=== PATIENT | female | born 1975 | race Caucasian/White ===

== ENCOUNTER 2019-01-12 06:19 | Day surgery (SDC) | payer MEDICAID ==
[2019-01-12] MEDS: SOD CHLORIDE 0.9% 1,000 ML IV (07:00)
[2019-01-12] MEDS: ACETAMINOPHEN 500 MG TAB PO (07:20)
[2019-01-12] MEDS ORDERED: HEPARIN 1000 UNITS/ML 10 ML INJ (07:40)
[2019-01-12] MEDS ORDERED: MIDAZOLAM 1 MG/ML 2 ML INJ (07:59)
[2019-01-12] MEDS ORDERED: PROPOFOL 40 ML (07:59)
[2019-01-12] MEDS ORDERED: LIDOCAINE 2% (SDV) 5 ML INJ (07:59)
[2019-01-12] MEDS ORDERED: FENTAnyl 50 MCG/ML VIAL (07:59)
[2019-01-12] MEDS ORDERED: CEFAZOLIN 1 GM INJ (07:59)
[2019-01-12] MEDS ORDERED: morphine 2 MG INJ IV ×2 (08:00)
[2019-01-12] MEDS ORDERED: FENTAnyl 50 MCG/ML VIAL IV ×2 (08:00)
[2019-01-12] MEDS ORDERED: OXYCODONE/ACETAMINOPHEN (5/325) TAB PO ×2 (08:00)
[2019-01-12] MEDS ORDERED: ALBUTEROL 0.083% (NEB) 2.5 MG/3 ML AMP HHN (08:00)
[2019-01-12] MEDS ORDERED: MEPERIDINE 25 MG INJ IV (08:00)
[2019-01-12] MEDS ORDERED: ONDANSETRON 4 MG INJ IV (08:00)
[2019-01-12] MEDS ORDERED: HYDROmorphONE 1 MG/5 ML IV SYRINGE IV ×3 (08:00)
[2019-01-12] MEDS ORDERED: LABETALOL HCL 20MG INJ IV (08:00)
[2019-01-12] MEDS ORDERED: DIPHENHYDRAMINE 50 MG INJ IV (08:00)
[2019-01-12] MEDS ORDERED: EPHEDrine 25 MG/5 ML SYG (08:48)
[2019-01-12] MEDS: LIDOCAINE 1% (MPF) 30 ML INJ (08:50)
[2019-01-12] MEDS ORDERED: PHENYLephrine (100 MCG/ML) 10ML SYG (08:56)
[2019-01-12] MEDS: CEFAZOLIN 2 GM/50 ML (PMX) 50 ML IVPB (09:19)
== END 2019-01-12 11:45 | disposition home or self-care (01) ==
LOC: SDS 06:19
DX: Z45.2 Encounter for adjustment and management of vascular access device (principal); Z85.3 Personal history of malignant neoplasm of breast
CPT/HCPCS: 36590